=== PATIENT | male | born 1965 | race Caucasian/White ===

== ENCOUNTER → 2017-05-31 | Outpatient (CLI) | payer BC ==
[~2017-05-31] MED LIST: AVELOX400 MG PO; METOPROLOL SUCC25 M1 PO; NEXIUM10 MG PO; PRILOSEC 20 MG20 MG PO
--- NOTE | ~2017-05-31 | 2DMMODE ---
[facility] [address] [place] [address] 2 D/M-MODE ECHOCARDIOGRAM Name: DEBBY TORRESATORTaylor Schulz III Room #: [facility] [id number] Admission: 05/31/17 Attend Phys: DAVIN Roberts Discharge: Date of : 69 Date of Service: 05/31/17 1440 Report #: [id number] THIS REPORT FOR: //name// APPROVED REPORT Study performed: 05/31/2017 09:54:50 EXAM: Comprehensive 2D, Doppler, and color-flow Echocardiogram Patient Location: Out-Patient Status: routine BSA: 2.61 HR: 80 bpm BP: 190/119 mmHg Other Information Study Quality: Adequate Indications Chest Pain 2D Dimensions RVDd: 40.84 mm LVEF(%): 60.05 (>50%) IVSd: 11.87 (7-11mm) LVOT Diam: 21.58 (18-24mm) LVDd: 59.32 mm PWd: 12.87 (7-11mm) Ascending Ao: 34.76 (22-36mm) LVDs: 40.02 (25-40mm) Aortic Root: 34.46 mm IVC: 2.70 mm Gandhi's LVEF: 60.05 % Volumes Left Atrial Volume (Systole) Single Plane 4CH: 92.66 mL Single Plane 2CH: 80.79 mL LA ESV Index: 38.00 mL/m2 Aortic Valve AoV Peak Kimani.: 1.17 m/s AO Peak Gr.: 5.50 mmHg LVOT Max P.86 mmHg LVOT Max V: 0.68 m/s AYAD Vmax: 2.12 cm2 Mitral Valve E/A Ratio: 0.9 MV Decel. Time: 211.00 ms MV E Max Kimani.: 0.65 m/s [facility] [place] [address] 2 D/M-MODE ECHOCARDIOGRAM Name: DARIA TORRES [id number] Admission: 05/31/17 Attend Phys: DAVIN Roberts Discharge: Date of : 69 Date of Service: 05/31/17 1440 Report #: [id number] MV A Kimani.: 0.70 m/s MV PHT: 61.19 ms IVRT: 92.27 ms Pulmonary Valve PV Peak Kimani.: 0.94 m/s PV Peak Gr.: 3.55 mmHg Pulmonary Vein P Vein S: 0.35 m/s P Vein A: 0.27 m/s P Vein D: 0.39 m/s P Vein A Dur.: 110.7 msec P Vein S/D Ratio: 0.90 Tricuspid Valve TR Peak Kimani.: 1.83 m/s RAP Estimate: 15.00 mmHg TR Peak Gr.: 13.37 mmHg PA Pressure: 28.00 mmHg Left Ventricle Left ventricle is dilated. There is global hypokinesis of the left ventricle. Mild concentric left ventricular hypertrophy. Left ventricular systolic function is mildly decreased. Left ventricular ejection fraction is mildly decreased. LVEF is 40-45%. Grade II - pseudonormal filling dynamics. Right Ventricle Right ventricle is dilated. The right ventricular systolic function is normal. Atria Left atrium is dilated. Right atrium is dilated. Aortic Valve Aortic valve is not well visualized. No aortic regurgitation is present. There is no aortic valvular stenosis. Mitral Valve The mitral valve is normal in structure. Trace mitral regurgitation. No evidence of mitral valve stenosis. Tricuspid Valve The tricuspid valve is normal in structure. There is tricuspid regurgitation. The right atrial pressure is estimated at 10 mmHg. There is no pulmonary hypertension. Pulmonic Valve The pulmonary valve is normal in structure. [place] [address] 2 D/M-MODE ECHOCARDIOGRAM Name: DARIA TORRES III Room #: [facility]#: [id number] Admission: 05/31/17 Attend Phys: DAVIN Roberts Discharge: Date of : 69 Date of Service: 05/31/17 1440 Report #: [id number] valvular regurgitation. Great Vessels The aortic root is normal in size. The ascending aorta is normal in size. IVC is dilated and collapses >50% with inspiration. Pericardium There is no pericardial effusion. <Conclusion> Left ventricle is dilated. Mild concentric left ventricular hypertrophy. Left ventricular systolic function is mildly decreased. Left ventricular ejection fraction is mildly decreased. LVEF is 40-45%. Grade II - pseudonormal filling dynamics. Right ventricle is dilated. Left atrium is dilated. Right atrium is dilated. Aortic valve is not well visualized. Trace mitral regurgitation. There is tricuspid regurgitation. The right atrial pressure is estimated at 10 mmHg. There is no pulmonary hypertension. There is no pericardial effusion. <ELECTRONICALLY SIGNED> By: Mina Madison MD, FACC 05/31/17 1440 1440 1440 Mina Madison MD, FACC /INF
== END ==
LOC: CV 09:44
DX: I51.7 Cardiomegaly (principal)

== ENCOUNTER 2019-01-15 16:09 | Inpatient (IN) | payer OTHER ==
[~2019-01-15] VITALS: Ht 190.5 cm; Wt 135.8 kg
[2019-01-15 16:53] VITALS: BP 171/88
[2019-01-15] MEDS ORDERED: ASPIRIN325 PO (17:06)
[2019-01-15] MEDS ORDERED: LIPITOR80 MG PO (17:07)
[2019-01-15] MEDS ORDERED: SYNTHROID175 MCG PO (17:08)
[2019-01-15] MEDS ORDERED: BYSTOLIC20 MG PO (17:08)
[2019-01-15] MEDS ORDERED: BENICAR40 MG PO (17:09)
[2019-01-15] MEDS ORDERED: PRILOSEC 20 MG20 MG PO (17:10)
[2019-01-15 18:10] LABS: ABSOLUTE NEUTROPHILS 4.3 thou/uL (1.4-8.2); BASOPHILS 0.8 % (0.0-2.0); EOSINOPHILS 3.5 % (0.0-3.0); HEMOGLOBIN 14.2 gm/dL (14.0-18.0); MCH 28.2 pg (26.0-34.0); MCHC 33.7 g/dL (28.0-37.0); MCV 83.6 fL (80.0-100.0); MONOCYTES 11.8 % (1.0-8.0); PLATELET COUNT 218 thou/uL (150-400); POLYS 54.9 % (36.0-66.0); RBC 5.03 mil/uL (4.50-6.00); RDW 14.7 % (10.5-14.5); WBC 7.8 thou/uL (4.0-11.0)
[2019-01-15 18:18] LABS: CREATININE 0.7 mg/dL (0.7-1.3); POTASSIUM 3.7 mmol/L (3.5-5.1)
[2019-01-15 18:26] LABS: ALBUMIN 3.7 g/dL (3.4-5.0); TOTAL BILIRUBIN 0.6 mg/dL (<0.1-1.0)
[2019-01-15 18:28] LABS: TROPONIN-I 0.69 ng/mL (<0.06)
[2019-01-15 19:00] VITALS: BP 151/92
[2019-01-16 00:09] VITALS: BP 140/75
[2019-01-16 03:39] LABS: CALCIUM 8.7 mg/dL (8.5-10.1); CREATININE 0.8 mg/dL (0.7-1.3); POTASSIUM 3.7 mmol/L (3.5-5.1)
[2019-01-16 03:41] LABS: HEMATOCRIT 42.5 % (42.0-52.0); HEMOGLOBIN 14.3 gm/dL (14.0-18.0); MCH 28.1 pg (26.0-34.0); MCHC 33.8 g/dL (28.0-37.0); MCV 83.3 fL (80.0-100.0); RBC 5.1 mil/uL (4.50-6.00); RDW 14.8 % (10.5-14.5); WBC 8.8 thou/uL (4.0-11.0)
[2019-01-16 03:52] LABS: TROPONIN-I 2.57 ng/mL (<0.06)
[2019-01-16 03:53] VITALS: BP 142/82
--- NOTE | 2019-01-16 06:11 | NUR ---
PT WAS AN ADMIT FROM CARDIAC CATH AND HAD A STENT PLACEMENT. PT IS STABLE, GROIN SITE IS INTACT, NO BLEEDING OR HEMATOMA, PT IS STABLE. ADMISSION ASSESSMENT AND EDUCATION COMPLETED. PT IS STABLE. PHYSICIAN NOTIFIED ABOUT ELEVATED BLOOD. SITE CONTINUED TO BE CHECKED. DENIES ANY NEEDS AT THIS TIME, DENIES ANY FURTHER NEEDS AT THIS TIME.
[2019-01-16] MEDS ORDERED: EFFIENT10 MG PO (07:22)
[2019-01-16 08:00] VITALS: BP 184/90
[2019-01-16 11:30] VITALS: BP 149/93
[2019-01-16 13:38] VITALS: BP 149/93
[2019-01-16 14:13] VITALS: BP 149/93
--- NOTE | 2019-01-18 13:12 | EKG ---
[address] [address] ELECTROCARDIOGRAM REPORT Name: DARIA TORRES NATALIO Room #: [facility] .R.#: [id number] ������������������ Admission: 01/15/19 ������������������ Attend Phys: Mina Madison MD, Discharge: 01/16/19 ������������������ Date of : 69 Report #: [id number] ����������������������������������������������������������������� [id number] THIS REPORT FOR: //name// [facility] Test Date: 2019-01-16 Test Time: 07:20:07 Pat Name: DARIA TORRES Department: Room: [facility] Gender: M [address] Clerk: : 1965 Requested By: Mina Madison Order Number: [id number] MD: Rene Vanessa Measurements Intervals Jasper Rate: 72 P: 50 NV: 147 QRS: 63 QRSD: 123 T: 92 QT: 427 QTc: 468 Interpretive Statements Sinus rhythm Nonspecific intraventricular conduction delay Nonspecific T abnormalities, lateral leads Compared to ECG 10/17/2012 15:23:08 Intraventricular conduction delay now present Electronically Signed On 01-18-2019 13:12:12 CDT by Rene Vanessa [email or web address] ��������������������������������������������� <ELECTRONICALLY SIGNED> ���������������������������������������� By: Rene Vanessa MD, [facility] ��������������������������������������������� 01/18/19 1312 9 9 Rene Vanessa MD, [facility] /EPI
--- NOTE | 2019-01-19 10:26 | CATHLAB ---
[facility] [address] [place] [address] INVASIVE PROCEDURE REPORT Name: DARIA TORRES [facility] Room #: 206-P [facility] IN [facility]#: [id number] ������������� Admission: 01/15/19 ������������� Attend Phys: Mina Madison, Discharge: ��� 01/16/19 ������������� ��� Date of : 69 Date of Service: 01/19/19 1025 �� Report #: [id number] �������� ��������������������������������������������[id number] THIS REPORT FOR: //name// APPROVED REPORT Study performed: 01/15/2019 17:23:51 Patient Details Patient Status: Out-Patient Room #: The patient is a 53 year-old male Event Personnel Mina Madison Motor Vehicle Escort Driver, Shay Hoffman RN, Judy Veloz RTR, Jermain Macdonald Roberta Monitor Procedures Performed Left Heart Cath w/or w/o Coronaries [id number] [facility] Aortogram Abdominal Peripheral Angio 431448 59886 Initial Mod Sed Same Phys/QHP Gr 683439 95593 Mod Sed Same Phys/QHP Ea 903763 Art Access - R femoral artery* DELIA Place w/wo Plasty Single CIRC 627114 Indication Chest pain Procedure Narrative The Right Groin^ was infiltrated with 1% Lidocaine subcutaneous anesthesia. A PINNACLE 6FR Sheath #[id number] sheath was inserted into the RFA^. Coronary angiography was performed using coronary diagnostic catheters. The right coronary system was accessed and visualized with a JR4 catheter. The left coronary system was accessed and visualized with a JL4 catheter. The left ventricle was accessed and visualized with a ANGLE PIG catheter. Closure device was deployed with a 6 Fr 6/7 MYNX. There was no hematoma. Intraoperative Conscious Sedation Sedation start time: 1742 Case end Time: 1840 Fentanyl 100 mcg Versed 2 mg Fluoro Time: 6.47 minutes Dose: DAP 25402.00 cGycm2 1730 mGy Contrast Type and Amount: Omnipaque 180 ml Hemodynamics The aortic pressure is 193/90 mmHg with a mean of mmHg. [facility] [address] [place] [address] INVASIVE PROCEDURE REPORT Name: DARIA TORRES [facility] Room #: 206-P [facility] IN ..#: [id number] ������������� Admission: 01/15/19 ������������� Attend Phys: Mina Madison, Discharge: ��� 01/16/19 ������������� ��� Date of : 69 Date of Service: 01/19/19 1025 �� Report #: [id number] �������� ��������������������������������������������[id number] ventricular pressure is 182/23 mmHg with a mean of mmHg. The left ventricular end diastolic pressure is 48 mmHg. PCI Technique Lesion Percutaneous coronary intervention was performed on the proximal circumflex artery segment. BALLOON DILATION A Balloon catheter Sprinter OTW 2.5 x 12 #[id number] was inserted and inflated up to 12.00atm for 30seconds. STENT DEPLOYMENT A stent XIENCE MILADIS RX 3.25 X 12 #[id number] was inserted and inflated up to 18.00atm for 45seconds. POST STENT DEPLOYMENT BALLOON DILATION A Balloon catheter TREK NC RX 3.5 X 8 #[id number] was inserted and inflated up to 18.00atm for 28seconds. Additional Inflation: 20.00atm for 30seconds. Additional Inflation: 20.00atm for 22seconds. Conclusion #1 assessment PTCA stent of a proximal circumflex a recently total occluded vessel placement of a 3.25 x 12 mL era medicated stent postdilated to 3.7 mm yielding 0% residual and ANGELA grade 3 flow #2 moderate but short left main free of disease giving rise to LAD and circumflex #3 LAD eccentric proximal lesion which is right after he previously placed stent in the 60-70% range proximal to the diagonal bifurcation which is moderately diseased proximal diagonal branch preserved LAD extends around the apex #4 dominant right coronary artery previously placed stent is patent with mild restenosis just distal to the stent is a 67% eccentric lesion which we will follow giving rise to a preserved dominant PDA vessel #5 normal left ventricular size with a moderate area of hypokinesis in the inferior base and some inferior lateral wall involvement EF 40-45% #6 abdominal aortogram revealed mild aortic ectasia mild aortic dilatation with a patent iliac system. We will follow with abdominal ultrasound no significant aneurysm does exist Recommendations and plan: Continue aggressive risk factor modification. Will follow closely the moderately LAD and RCA lesions as noted above. Excellent result expect there will be little new damage from this. Some faint filling collaterally was providing flow [facility] [address] [place] [address] INVASIVE PROCEDURE REPORT Name: DARIA TORRES [facility] Room #: [address] [place] [address] IN M.R.#: [id number] ������������� Admission: 01/15/19 ������������� Attend Phys: Mina Madison Discharge: ��� 01/16/19 ������������� ��� Date of : 69 Date of Service: 01/19/19 1025 �� Report #: [id number] �������� ��������������������������������������������[id number] into the circumflex system Dual antiplatelet therapy indefinitely to the CCU to follow post stent protocol ��������������������������������������������� <ELECTRONICALLY SIGNED> ���������������������������������������� By: Mina Madison MD, [facility] ��������������������������������������������� 01/19/19 1025 1025 1025 Mina Madison MD, FACC /INF
== END 2019-01-16 16:20 | disposition home or self-care (01) | DRG 246 ==
LOC: 2N 16:09 → ENTRNSPT 01-16 14:00 → EDTRNSPTSTS 01-16 14:04 → 2N 01-16 16:20
PROVIDERS: ADMIT Internal Medicine Cardiovascular Disease
PROC: B4101ZZ Fluoroscopy of Abdominal Aorta using Low Osmolar Contrast (ICD-10-PCS; principal; 2019-01-15)
PROC: 4A023N7 Measurement of Cardiac Sampling and Pressure, Left Heart, Percutaneous Approach (ICD-10-PCS; principal; 2019-01-15)
PROC: B2151ZZ Fluoroscopy of Left Heart using Low Osmolar Contrast (ICD-10-PCS; principal; 2019-01-15)
PROC: 027034Z Dilation of Coronary Artery, One Artery with Drug-eluting Intraluminal Device, Percutaneous Approach (ICD-10-PCS; principal; 2019-01-15)
PROC: B2111ZZ Fluoroscopy of Multiple Coronary Arteries using Low Osmolar Contrast (ICD-10-PCS; principal; 2019-01-15)
DX: I21.4 Non-ST elevation (NSTEMI) myocardial infarction (principal); I50.33 Acute on chronic diastolic (congestive) heart failure; I10 Essential (primary) hypertension; E78.00 Pure hypercholesterolemia, unspecified; K21.9 Gastro-esophageal reflux disease without esophagitis; I25.110 Atherosclerotic heart disease of native coronary artery with unstable angina pectoris; M19.90 Unspecified osteoarthritis, unspecified site; E78.5 Hyperlipidemia, unspecified; F17.210 Nicotine dependence, cigarettes, uncomplicated; I25.2 Old myocardial infarction; Z95.5 Presence of coronary angioplasty implant and graft; Z79.899 Other long term (current) drug therapy; Z91.013 Allergy to seafood
CPT/HCPCS: 10081

== ENCOUNTER → 2019-10-28 | Outpatient (CLI) | payer OTHER ==
[~2019-10-28] MED LIST changes: +ASPIRIN325 PO; +BENICAR40 MG PO; +BYSTOLIC20 MG PO; +EFFIENT10 MG PO; +LIPITOR80 MG PO; +SYNTHROID175 MCG PO
== END ==
LOC: RAD 10:21
DX: R05 Cough (principal); R06.00 Dyspnea, unspecified

== ENCOUNTER → 2020-09-13 | Outpatient (CLI) | payer BC, OTHER | LOC: SJCVCIMAG 09:42 | PROVIDERS: ATTEND Internal Medicine | DX: R55 Syncope and collapse (principal) ==

== ENCOUNTER → 2020-09-19 | Outpatient (CLI) | payer OTHER | LOC: CAT 09:15 | DX: F17.200 Nicotine dependence, unspecified, uncomplicated (principal); I25.10 Atherosclerotic heart disease of native coronary artery without angina pectoris ==

== ENCOUNTER 2021-03-09 11:45 | Inpatient (IN) | payer OTHER ==
[~2021-03-09] VITALS: Ht 190.5 cm; Wt 142.4 kg
[~2021-03-09 11:45] MED LIST changes: -ALLEGRA ALLERG180 MG PO; -BUPROPION HCL150 M1 PO; -CARVEDILOL12.5 MG PO; -CIPRO500 M1 PO; -EDARBYCLOR 40-1 EAC1 PO; -FLAGYL500 M1 PO; -LEXAPRO 10 MG T10 M2 PO; -NORVASC5 MG PO; -PRILOSEC OTC20 MG PO; -TORSEMIDE20 MG PO; -VITAMIN D21250 MC1 PO; -ZETIA10 MG PO
[2021-03-09 12:56] VITALS: BP 105/54
[2021-03-09] MEDS ORDERED: CARVEDILOL12.5 MG PO (14:07)
[2021-03-09] MEDS ORDERED: TORSEMIDE20 MG PO (14:10)
[2021-03-09] MEDS ORDERED: ZETIA10 MG PO (14:11)
[2021-03-09] MEDS ORDERED: VITAMIN D21250 MC1 PO (14:12)
[2021-03-09] MEDS ORDERED: NORVASC5 MG PO (14:13)
[2021-03-09] MEDS ORDERED: LEXAPRO 10 MG T10 M2 PO (14:13)
[2021-03-09] MEDS ORDERED: EDARBYCLOR 40-1 EAC1 PO (14:14)
[2021-03-09 14:29] LABS: HEMOGLOBIN 11.4 gm/dL (14.0-18.0); MCH 23.6 pg (26.0-34.0); MCHC 31.7 g/dL (28.0-37.0); MCV 74.3 fL (80.0-100.0); RBC 4.85 mil/uL (4.50-6.00); RDW 20.3 % (10.5-14.5); WBC 12.9 thou/uL (4.0-11.0)
[2021-03-09 15:10] LABS: ALBUMIN 3.6 g/dL (3.4-5.0); CALCIUM 8.8 mg/dL (8.5-10.1); CREATININE 1.6 mg/dL (0.7-1.3); POTASSIUM 3.8 mmol/L (3.5-5.1); TOTAL BILIRUBIN 0.6 mg/dL (0.2-1.0); TOTAL PROTEIN 7.4 g/dL (6.4-8.2)
[2021-03-09 15:38] VITALS: BP 96/50
[2021-03-09] MEDS ORDERED: PRILOSEC OTC20 MG PO (16:09)
[2021-03-09] MEDS ORDERED: BUPROPION HCL150 M1 PO (16:10)
[2021-03-09] MEDS ORDERED: ALLEGRA ALLERG180 MG PO (16:11)
[2021-03-09 19:20] VITALS: BP 124/67
[2021-03-10 03:45] VITALS: BP 123/62
[2021-03-10 04:18] LABS: HEMATOCRIT 34.3 % (42.0-52.0); HEMOGLOBIN 11.3 gm/dL (14.0-18.0); MCH 24.5 pg (26.0-34.0); MCV 74.3 fL (80.0-100.0); RBC 4.61 mil/uL (4.50-6.00); RDW 20.4 % (10.5-14.5)
[2021-03-10 04:29] LABS: CALCIUM 8.5 mg/dL (8.5-10.1); CREATININE 1.2 mg/dL (0.7-1.3); POTASSIUM 3.6 mmol/L (3.5-5.1)
[2021-03-10 07:36] VITALS: BP 133/64
[2021-03-10 16:03] VITALS: BP 119/70
[2021-03-10 19:58] VITALS: BP 121/56
[2021-03-11 03:16] VITALS: BP 117/58
[2021-03-11 05:05] LABS: HEMOGLOBIN 11.1 gm/dL (14.0-18.0); MCH 25.1 pg (26.0-34.0); MCHC 33.6 g/dL (28.0-37.0); MCV 74.6 fL (80.0-100.0); RBC 4.43 mil/uL (4.50-6.00)
[2021-03-11 05:11] LABS: CALCIUM 8.4 mg/dL (8.5-10.1); CREATININE 1.1 mg/dL (0.7-1.3); POTASSIUM 3.9 mmol/L (3.5-5.1)
[2021-03-11 07:34] VITALS: BP 127/67
[2021-03-11] MEDS ORDERED: CIPRO500 M1 PO (07:44)
[2021-03-11] MEDS ORDERED: FLAGYL500 M1 PO (07:45)
[2021-03-11 10:44] VITALS: BP 127/67
== END 2021-03-11 11:54 | disposition home or self-care (01) | DRG 391 ==
LOC: 3W 11:45
PROVIDERS: ADMIT Family Medicine; ATTEND Family Medicine
DX: K57.32 Diverticulitis of large intestine without perforation or abscess without bleeding (principal); N17.0 Acute kidney failure with tubular necrosis; E78.00 Pure hypercholesterolemia, unspecified; K21.9 Gastro-esophageal reflux disease without esophagitis; I10 Essential (primary) hypertension; E78.5 Hyperlipidemia, unspecified; E03.9 Hypothyroidism, unspecified; K64.8 Other hemorrhoids; G47.30 Sleep apnea, unspecified; I25.10 Atherosclerotic heart disease of native coronary artery without angina pectoris; F17.210 Nicotine dependence, cigarettes, uncomplicated; Z91.013 Allergy to seafood; Z79.82 Long term (current) use of aspirin; Z79.899 Other long term (current) drug therapy; I25.2 Old myocardial infarction; Z95.5 Presence of coronary angioplasty implant and graft
CPT/HCPCS: 10779

== ENCOUNTER → 2021-03-09 | Outpatient (CLI) | payer OTHER ==
[~2021-03-09] MED LIST changes: +ALLEGRA ALLERG180 MG PO; +BUPROPION HCL150 M1 PO; +CARVEDILOL12.5 MG PO; +CIPRO500 M1 PO; +EDARBYCLOR 40-1 EAC1 PO; +FLAGYL500 M1 PO; +LEXAPRO 10 MG T10 M2 PO; +NORVASC5 MG PO; +PRILOSEC OTC20 MG PO; +TORSEMIDE20 MG PO; +VITAMIN D21250 MC1 PO; +ZETIA10 MG PO
== END ==
LOC: CAT 09:53
PROVIDERS: ATTEND Family Medicine
DX: K57.32 Diverticulitis of large intestine without perforation or abscess without bleeding (principal); K44.9 Diaphragmatic hernia without obstruction or gangrene; N20.0 Calculus of kidney; I70.0 Atherosclerosis of aorta; I71.9 Aortic aneurysm of unspecified site, without rupture; K40.90 Unilateral inguinal hernia, without obstruction or gangrene, not specified as recurrent

== ENCOUNTER → 2021-04-28 | Outpatient (CLI) | payer OTHER ==
[~2021-04-28] VITALS: Ht 190.5 cm; Wt 136.1 kg
[~2021-04-28] MED LIST changes: +ALLEGRA ALLERG180 MG PO; +ATORVASTATIN CA80 MG PO; +BUPROPION HCL150 M1 PO; +CARVEDILOL12.5 MG PO; +CIPRO500 M1 PO; +EDARBYCLOR 40-1 EAC1 PO; +FISH OIL 1,0001 EAC9 PO; +FLAGYL500 M1 PO; +FLUTICASONE PRO16 GM NASAL; +HUMIRA PEN40 MG/0.4 SUBQ; +LEXAPRO 10 MG T10 M2 PO; +NORVASC5 MG PO; +OMEPRAZOLE40 MG PO; +PRILOSEC OTC20 MG PO; +SUPER THERAVIT1 EACH PO; +TORSEMIDE20 MG PO; +VITAMIN D21250 MCG PO; +ZETIA10 MG PO
--- NOTE | 2021-05-01 17:36 | P ---
[facility] [address] [address] PROCEDURE REPORT Name: DARIA TORRES Room #: REG CAROLA Gabriela#: [id number] Admission: 04/28/21 Attend Phys: Amador Oneill Discharge: Date of : 69 Report #: [id number] THIS REPORT FOR: cc: Angel Evans MD, Neal A. MD McElhinney, Christian C. MD ~ cc: Angel Evans MD DATE OF SERVICE: 04/28/2021 PROCEDURE PERFORMED: Colonoscopy with biopsies. HISTORY OF PRESENT ILLNESS: The patient is a 55-year-old male with history of an episode of diverticulitis approximately six to eight weeks ago. He was hospitalized for one day. During that time, finished his course of antibiotics. Denies any further left lower quadrant abdominal pains. No family history of colon cancer. Plan is for colonoscopy. DESCRIPTION OF PROCEDURE: The risks and benefits of the procedure were explained to the patient, those risks including but not limited to bleeding, perforation, and the risk of sedation. He understood these risks and gave informed consent. Sedation was given using propofol per anesthesia. Next, digital rectal exam was initially performed, which was normal. Next, using a standard Olympus colonoscope, the scope was placed in the patient's anus and advanced under direct vision to the cecum. The overall prep was good in most areas, fair in some areas. The cecum and ileocecal valve were normal in appearance. Ascending colon was normal. In the transverse colon, a 4 mm sessile polyp was noted. This was removed with cold forceps, otherwise, normal. Multiple diverticula were noted in the descending and sigmoid colon. No evidence of inflammation. The rectal mucosa was normal. On retroflexion, a small to medium size nonbleeding internal hemorrhoids were noted. The scope was then withdrawn and the procedure terminated. The patient tolerated the procedure well. IMPRESSION: 1. Small colonic polyp. 2. Left-sided diverticulosis. 3. Internal hemorrhoids. 4. Otherwise normal colonoscopy. RECOMMENDATIONS: 1. Await biopsy results. 2. Recommend high fiber diet. 3. Repeat colonoscopy in five years. [facility] [address] [place] [address] PROCEDURE REPORT Name: ADAMA TORRESTaylor AGUILAR Room #: REG [facility].#: [id number] Admission: 04/28/21 Attend Phys: Amador Oneill Discharge: Date of : 69 Report #: [id number] Thank you for allowing me to participate in his care. <ELECTRONICALLY SIGNED> By: Amador Hall MD 05/01/21 1736 0850 2220 Amador Hall MD /nt
--- NOTE | 2021-05-02 18:06 | PATH ---
[facility] [address] [place] [address] PATHOLOGY RPT PROCEDURE Name: DARIA TORRES Room #: REG CAROLA Gusman.#: [id number] Admission: 04/28/21 Date of : 69 Discharge: Report #: [id number] Path Case #: [id number] [facility] Accession Number: [id number] . 01 Material submitted: . colon - TRANSVERSE COLON POLYP. Modifiers: transverse . 01 Clinical history: . HX DIVERTICULITIS COLONOSCOPY . 02 Diagnosis: Polyp, transverse colon polyp, endoscopic biopsy: - Tubular adenoma. - Negative for high-grade dysplasia. (IUV:pit; 05/02/2021) QTP 05/02/2021 1330 Local . 02 Electronically signed: . Carey Yates MD, Pathologist NPI- [id number] . 01 Gross description: . Received in formalin labeled "Frustaci, Daria, transverse polyp" and labeled on the requisition as "transverse colon polyp" are multiple demarco-brown soft tissue fragments measuring in aggregate 0.5 x 0.3 x 0.1 cm. The specimen is submitted entirely in A1. ([facility]; 04/29/2021) [facility] 04/29/2021 1112 Local . 02 Pathologist provided ICD-10: D12.3 . 02 CPT . 463941 Specimen Comment: A courtesy copy of this report has been sent to [phone], [phone] Specimen Comment: [id number] Specimen Comment: Report sent to / DR ABDALLA Performed at: [address], [place] [id number] MD Gallo Quiroz MD Phone: [phone] Performed at: [address] [id number] MD Carey Yates MD Phone: [phone]
== END | disposition home or self-care (01) ==
LOC: GI 08:07
PROVIDERS: ATTEND Specialist
DX: D12.3 Benign neoplasm of transverse colon (principal); K57.30 Diverticulosis of large intestine without perforation or abscess without bleeding; K64.8 Other hemorrhoids; I10 Essential (primary) hypertension; E78.00 Pure hypercholesterolemia, unspecified; F41.9 Anxiety disorder, unspecified; G47.30 Sleep apnea, unspecified; I25.2 Old myocardial infarction; Z98.890 Other specified postprocedural states; Z79.899 Other long term (current) drug therapy
CPT/HCPCS: 62110; 62900